=== PATIENT | female | born 1985 | race Caucasian/White ===

== ENCOUNTER 2024-02-06 23:58 | Emergency (ER) | payer OTHER ==
[~2024-02-06] VITALS: Ht 165.1 cm; Wt 38.6 kg
[2024-02-07] MEDS ORDERED: HYDROCODONE/APAP 10/325MG TABLET ONE (00:33)
[2024-02-07] MEDS ORDERED: HYDR-3980 PO (00:36)
[2024-02-07] MEDS: HYDROCODONE/APAP 10/325MG TABLET PO ONE (00:37)
[2024-02-07 00:43] VITALS: BP 122/70; TEMP 98.4; O2SAT 100
== END 2024-02-07 00:43 ==
LOC: ER 02-07 00:05
DX: G89.29 Other chronic pain (principal); M79.602 Pain in left arm; I10 Essential (primary) hypertension; Z65.3 Problems related to other legal circumstances; Z88.1 Allergy status to other antibiotic agents; Z88.5 Allergy status to narcotic agent; Z88.6 Allergy status to analgesic agent; Z87.39 Personal history of other diseases of the musculoskeletal system and connective tissue